=== PATIENT | male | born 1950 ===

== ENCOUNTER 2016-10-15 03:46 | Inpatient (IN) | payer OTHER ==
[~2016-10-15] VITALS: Ht 167.6 cm; Wt 69.4 kg
[2016-10-15 07:43] LABS: PLATELET COUNT 172 x10^3mcL (130-400)
[2016-10-15 07:44] LABS: RED CELL DISTRIBUTION WIDTH 14.8 % (11.5-14.5)
[2016-10-15 07:49] LABS: CHLORIDE SERUM 103 mmol/L (98-107); CREATININE SERUM 1.1 mg/dL (0.7-1.3); GFR1 > 60 mL/min; GLUCOSE SERUM 247 mg/dL (74-106); POTASSIUM SERUM 4.1 mmol/L (3.5-5.1); SODIUM SERUM 138 mmol/L (136-145)
[2016-10-15 07:51] LABS: ALBUMIN 3.6 g/dL (3.4-5.0); ALKALINE PHOSPHATASE 196 U/L (46-116); ALT/SGPT 157 U/L (16-63); AST/SGOT 56 U/L (15-37); BILIRUBIN TOTAL 1.49 mg/dL (0.20-1.00); TOTAL PROTEIN, SERUM 7.2 g/dL (6.4-8.2)
[2016-10-15 08:13] LABS: BAND NEUTROPHIL 6 % (0-10); METAMYELOCTE 3 % (0-2); MONOCYTE 2 % (0-7); SEGMENTED NEUTROPHILS 84 % (37-75)
[2016-10-15 08:15] LABS: PLATELET MORPHOLOGY LARGE PLATELET SEEN; rbc morphology (normal/abnorm) NORMAL (NORMAL)
[2016-10-15] MEDS ORDERED: ATORVASTATIN CA40 M1 PO (09:56)
[2016-10-15] MEDS ORDERED: LEVOTHYROXIN0.075 M2 PO (09:56)
[2016-10-15] MEDS ORDERED: JARDIANCE25 MG PO (09:57)
[2016-10-15] MEDS ORDERED: TRAZODONE50 M1 PO (09:57)
[2016-10-15] MEDS ORDERED: XARELTO10 M1 PO (09:57)
[2016-10-15] MEDS ORDERED: METOPROLOL SUCC50 M2 PO (09:57)
[2016-10-15] MEDS ORDERED: LOSARTAN POTASS25 M1 PO (09:57)
[2016-10-15] MEDS ORDERED: METFORMIN HCL1000 MG PO (09:58)
[2016-10-15] MEDS ORDERED: GLYBURIDE5 MG PO (09:59)
[2016-10-15] MEDS ORDERED: DEPO-TESTOS200 MG/ML IM (09:59)
[2016-10-15] MEDS ORDERED: XYZAL5 M1 PO (10:00)
[2016-10-15] MEDS ORDERED: METOPROLOL TAR100 MG PO (10:01)
[2016-10-15 11:43] VITALS: BP 107/61
[2016-10-15 11:52] LABS: FREE T4 1.38 ng/dL (0.76-1.46); FREE THYROXINE INDEX 3.9 ug/dL (1.4-4.5); T4(THYROXINE) 9.9 ug/dL (4.7-13.3)
[2016-10-15 11:53] LABS: T3 TOTAL 0.97 ng/mL
[2016-10-15 13:44] VITALS: BP 111/58
[2016-10-15 17:28] VITALS: BP 114/69
[2016-10-15 21:54] VITALS: BP 99/64
[2016-10-16 06:02] VITALS: BP 115/71
[2016-10-16 06:47] LABS: BASOPHIL % 0.3 % (0-2); PLATELET COUNT 148 x10^3mcL (130-400)
[2016-10-16 06:55] LABS: RED CELL DISTRIBUTION WIDTH 14.8 % (11.5-14.5)
[2016-10-16 06:59] LABS: ALKALINE PHOSPHATASE 137 U/L (46-116); ALT/SGPT 140 U/L (16-63); AST/SGOT 46 U/L (15-37); BILIRUBIN TOTAL 1.23 mg/dL (0.20-1.00); CALCIUM 8.1 mg/dL (8.5-10.1); CARBON DIOXIDE 22.2 mmol/L (21-32); CHLORIDE SERUM 109 mmol/L (98-107); CREATININE SERUM 1.1 mg/dL (0.7-1.3); GFR1 > 60 mL/min; GLUCOSE SERUM 154 mg/dL (74-106); MAGNESIUM 1.2 mg/dL (1.8-2.4); PHOSPHOROUS 3.9 mg/dL (2.5-4.9); POTASSIUM SERUM 3.9 mmol/L (3.5-5.1); SODIUM SERUM 142 mmol/L (136-145)
[2016-10-16 07:02] LABS: ALBUMIN 2.9 g/dL (3.4-5.0)
[2016-10-16 07:22] LABS: CHOLESTEROL/HDL RATIO 1.9
[2016-10-16 10:26] VITALS: BP 107/77
[2016-10-16 14:20] VITALS: BP 101/65
[2016-10-16 16:52] LABS: UA SPECIFIC GRAVITY >=1.030 (1.005-1.035); microscopic required? YES; urine erythrocyte NEGATIVE (NEGATIVE)
[2016-10-16 17:58] VITALS: BP 100/80
[2016-10-16 21:45] VITALS: BP 125/81
[2016-10-17 05:46] VITALS: BP 113/88
[2016-10-17 06:03] LABS: BASOPHIL % 0.3 % (0-2); PLATELET COUNT 161 x10^3mcL (130-400)
[2016-10-17 06:28] LABS: CALCIUM 8.4 mg/dL (8.5-10.1); CARBON DIOXIDE 24.3 mmol/L (21-32); CHLORIDE SERUM 106 mmol/L (98-107); CREATININE SERUM 1.2 mg/dL (0.7-1.3); GFR1 > 60 mL/min; GLUCOSE SERUM 129 mg/dL (74-106); MAGNESIUM 1.2 mg/dL (1.8-2.4); PHOSPHOROUS 4.1 mg/dL (2.5-4.9); POTASSIUM SERUM 4.3 mmol/L (3.5-5.1); SODIUM SERUM 141 mmol/L (136-145)
[2016-10-17 06:41] LABS: RED CELL DISTRIBUTION WIDTH 15.1 % (11.5-14.5)
[2016-10-17 08:56] VITALS: BP 125/68
[2016-10-17] MEDS ORDERED: LIPITOR80 MG PO (08:56)
[2016-10-17] MEDS ORDERED: ECO81 PO (08:59)
[2016-10-17] MEDS ORDERED: CAR60 PO (08:59)
[2016-10-17] MEDS ORDERED: ZES5 PO (09:00)
[2016-10-17] MEDS ORDERED: LEVOFLOXACIN500 M1 PO (09:01)
[2016-10-17] MEDS ORDERED: LAC PO (09:01)
[2016-10-17] MEDS ORDERED: CLEOCIN HCL300 MG PO (09:02)
[2016-10-17 13:05] VITALS: BP 125/68
[2016-10-17 13:09] VITALS: BP 121/83
== END 2016-10-17 13:34 | disposition home or self-care (01) | DRG 177 ==
LOC: ED 03:46 → DU 07:40
PROVIDERS: Emergency Medicine; ADMIT Family Medicine
DX: J69.0 Pneumonitis due to inhalation of food and vomit (principal); J96.21 Acute and chronic respiratory failure with hypoxia; N17.0 Acute kidney failure with tubular necrosis; I50.43 Acute on chronic combined systolic (congestive) and diastolic (congestive) heart failure; D68.69 Other thrombophilia; I69.354 Hemiplegia and hemiparesis following cerebral infarction affecting left non-dominant side; I69.320 Aphasia following cerebral infarction; I11.0 Hypertensive heart disease with heart failure; E11.65 Type 2 diabetes mellitus with hyperglycemia; E11.51 Type 2 diabetes mellitus with diabetic peripheral angiopathy without gangrene; J44.9 Chronic obstructive pulmonary disease, unspecified; I48.2 Chronic atrial fibrillation; I35.0 Nonrheumatic aortic (valve) stenosis; I27.2 Other secondary pulmonary hypertension; N28.89 Other specified disorders of kidney and ureter; K70.0 Alcoholic fatty liver; E03.9 Hypothyroidism, unspecified; E78.5 Hyperlipidemia, unspecified; F10.10 Alcohol abuse, uncomplicated; Z68.24 Body mass index [BMI] 24.0-24.9, adult; Z87.891 Personal history of nicotine dependence; Z79.01 Long term (current) use of anticoagulants; Z79.84 Long term (current) use of oral hypoglycemic drugs
CPT/HCPCS: 36600; 82962; 83880; 84439; 92610-GN; 94150; 97116-GP; J0456; J0696; J1940; J1956; J3475; J3490; J7030; J7050; J7512; J7613; J7644; Q0092

== ENCOUNTER 2017-02-16 11:22 | Emergency (ER) | payer OTHER, BC ==
[~2017-02-16 11:22] MED LIST: ATORVASTATIN CA40 M1 PO; CAR60 PO; CLEOCIN HCL300 MG PO; DEPO-TESTOS200 MG/ML IM; ECO81 PO; GLYBURIDE5 MG PO; JARDIANCE25 MG PO; LAC PO; LEVOFLOXACIN500 M1 PO; LEVOTHYROXIN0.075 M2 PO; LIPITOR80 MG PO; LOSARTAN POTASS25 M1 PO; METFORMIN HCL1000 MG PO; METOPROLOL SUCC50 M2 PO; METOPROLOL TAR100 MG PO; TRAZODONE50 M1 PO; XARELTO10 M1 PO; XYZAL5 M1 PO; ZES5 PO
[2017-02-16 12:00] LABS: BASOPHIL % 0.6 % (0-2); RED CELL DISTRIBUTION WIDTH 13.7 % (11.5-14.5)
[2017-02-16] MEDS ORDERED: DILTIAZEM HCL180 MG PO (12:00)
[2017-02-16] MEDS ORDERED: TOPROL XL25 MG PO (12:00)
[2017-02-16] MEDS ORDERED: LIPITOR40 MG PO (12:01)
[2017-02-16] MEDS ORDERED: JARDIANCE25 MG PO (12:01)
[2017-02-16 12:05] LABS: CALCIUM 8.9 mg/dL (8.5-10.1); CARBON DIOXIDE 24.5 mmol/L (21-32); CHLORIDE SERUM 105 mmol/L (98-107); GFR1 > 60 mL/min; GLUCOSE SERUM 233 mg/dL (74-106); POTASSIUM SERUM 4.4 mmol/L (3.5-5.1); SODIUM SERUM 140 mmol/L (136-145)
[2017-02-16 12:11] LABS: ALBUMIN 3.8 g/dL (3.4-5.0); ALKALINE PHOSPHATASE 179 U/L (46-116); ALT/SGPT 241 U/L (16-63); AST/SGOT 130 U/L (15-37); BILIRUBIN TOTAL 0.95 mg/dL (0.20-1.00); TOTAL PROTEIN, SERUM 7.6 g/dL (6.4-8.2)
[2017-02-16 12:21] LABS: PLATELET COUNT 260 x10^3mcL (130-400)
[2017-02-16 13:50] VITALS: BP 122/78
== END 2017-02-16 14:10 | disposition home or self-care (01) ==
LOC: ED 11:22
PROVIDERS: Emergency Medicine
DX: I11.0 Hypertensive heart disease with heart failure (principal); I50.42 Chronic combined systolic (congestive) and diastolic (congestive) heart failure; I48.91 Unspecified atrial fibrillation; E11.9 Type 2 diabetes mellitus without complications
CPT/HCPCS: 83880; J1940; J3490; Q0092

== ENCOUNTER 2017-02-28 11:14 | Inpatient (IN) | payer OTHER, BC ==
[~2017-02-28] VITALS: Ht 170.2 cm; Wt 67.2 kg
[~2017-02-28 11:14] MED LIST changes: +DILTIAZEM HCL180 MG PO; +LIPITOR40 MG PO; +TOPROL XL25 MG PO
--- NOTE | 2017-02-28 11:19 | NUR ---
PT SENT TO LOBBY TO WAIT FOR AVAILABLE BED. NO DISTRESS NOTED AND ALERT AND ORIENTED.
--- NOTE | 2017-02-28 11:57 | NUR ---
DR. WESTFALL, AT BEDSIDE FOR MSE. SEE ED ASSESSMENT FOR NOTES. COMFORT MESAURES IMPLEMENTED. CALL LIGHT W/IN REACH. WILL CONTINUE TO MONITOR.
--- NOTE | 2017-02-28 13:33 | NUR ---
DR WILL AT BEDSIDE TO DISCUSS PLAN OF CARE PTS HR IS AFIB AROUND 120-145 WHERE BEFORE IT WAS AROUND 80/90, RECOMNED TO DR TURK AN EKG, EMT AT BEDSIDE FOR EKG
--- NOTE | 2017-02-28 14:57 | NUR ---
MEDICATED ORDERED. PLEASE SEE EMR.
--- NOTE | 2017-02-28 15:25 | NUR ---
DR. WESTFALL AT BEDSIDE FOR PLAN OF CARE. RECOMMENDED PT BE ADMITTED TO HOSPITAL. PT REFUSING. WAITING FOR TO ARRIVE TO DISCUSS PLAN OF CARE.
[2017-02-28 16:47] LABS: BASOPHIL % 0.8 % (0-2); PLATELET COUNT 287 x10^3mcL (130-400); RED CELL DISTRIBUTION WIDTH 13.7 % (11.5-14.5)
[2017-02-28 17:00] LABS: CALCIUM 9.5 mg/dL (8.5-10.1); CARBON DIOXIDE 27.5 mmol/L (21-32); CHLORIDE SERUM 103 mmol/L (98-107); CREATININE SERUM 1.2 mg/dL (0.7-1.3); GFR1 > 60 mL/min; GLUCOSE SERUM 198 mg/dL (74-106); POTASSIUM SERUM 4.6 mmol/L (3.5-5.1); SODIUM SERUM 140 mmol/L (136-145)
[2017-02-28] MEDS ORDERED: XARELTO20 M1 PO (17:01)
[2017-02-28] MEDS ORDERED: METOPROLOL TART25 M1 PO ×2 (17:02)
[2017-02-28] MEDS ORDERED: METFORMIN HCL1000 MG PO (17:02)
[2017-02-28] MEDS ORDERED: MEN'S ONE DAIL1 EACH PO (17:04)
--- NOTE | 2017-02-28 17:04 | NUR ---
MED REC COMPLETED USING LIST PROVIDED BY .
[2017-02-28 17:05] LABS: ALBUMIN 3.8 g/dL (3.4-5.0); ALKALINE PHOSPHATASE 118 U/L (46-116); ALT/SGPT 101 U/L (16-63); AST/SGOT 63 U/L (15-37); BILIRUBIN TOTAL 0.91 mg/dL (0.20-1.00); TOTAL PROTEIN, SERUM 8.1 g/dL (6.4-8.2)
--- NOTE | 2017-02-28 17:08 | NUR ---
BILAT NARES SWABBED FOR MRSA SCREENING.
--- NOTE | 2017-02-28 18:00 | NUR ---
HR UP TO 160'S, MED PER ORDER. FLUID BOLUS BEGAN FOR ELEVATED LACTIC ACID.
--- NOTE | 2017-02-28 18:14 | NUR ---
REPORT GIVEN TO GORGE SAVAGE FOR CONTINUATION OF CARE PRIMARY RN.
--- NOTE | 2017-02-28 18:15 | NUR ---
PURPLE SEPSIS CHECKLIST INITIATED. PT MEETS SEVERE SEPSIS GUIDELINES. DR. WESTFALL NOTIFIED.
--- NOTE | 2017-02-28 18:22 | NUR ---
PT TRANSFERED VIA GURNEY ACCOMPANIED BY NURSE AND EMT. SENIOR COMPUTER SPECIALIST ATTACHED. VSS. RESPS E/U. NO S/S OF DISTRESS NOTED.
[2017-02-28 18:25] LABS: microscopic required? NO
--- NOTE | 2017-02-28 18:25 | NUR ---
FLUID END TIME CHARTING & REPEAT VITALS ENDORSED TO HUSSEIN PENNINGTON.
[2017-02-28 18:31] LABS: ALBUMIN 3.8 g/dL (3.4-5.0); MAGNESIUM 1.7 mg/dL (1.8-2.4); PHOSPHOROUS 4.7 mg/dL (2.5-4.9)
[2017-02-28 18:37] LABS: UA SPECIFIC GRAVITY 1.015 (1.005-1.035); urine erythrocyte NEGATIVE (NEGATIVE)
[2017-02-28 18:41] VITALS: BP 127/80
[2017-02-28 18:43] LABS: T3 TOTAL 1.02 ng/mL
--- NOTE | 2017-02-28 18:49 | NUR ---
RECEIVED PATIENT FROM ED VIA GUERNEY, PATIENT ALERT AND ORIENTED, TELE # 31 AFIB WITH RVR, HR IRREGULAR 120'S TO 160'S, PHYSICIAN MADE AWARE, NO C/O PAIN AT THIS TIME, IV ACCESS TO LFA WNL, ORIENTED PATIENT TO ROOM AND SURROUNDINGS, BED IN LOW POSITION, BED RAILS UP X 2, CALL LIGHT WITHIN REACH, WILL ENDORSE CARE TO ONCOMING NURSE
[2017-02-28 19:01] LABS: FREE T4 1.25 ng/dL (0.76-1.46); FREE THYROXINE INDEX 3.8 ug/dL (1.4-4.5); T4(THYROXINE) 10.5 ug/dL (4.7-13.3)
--- NOTE | 2017-02-28 19:40 | NUR ---
REC'D PT FROM HUSSEIN PENNINGTON. SON AT BEDSIDE. PT AAOX4, SPEECH CLEAR, FOLLOWS COMMANDS. NO SIGNS OF DISTRESS NOTED. BREATHING EVEN/UNLABORED ON RA. ON TELE 31 READING AFIB. DENIES CP, DIZZINESS, OR PALPITATIONS. NO EDEMA NOTED. DENIES ABD PAIN, TENDERNESS, OR N/V. NOTED REDNESS TO ABD. PICTURE OBTAINED. VOIDING FREELY. AMBULATORY. DENIES PAIN OR DISCOMFORT AT THIS TIME. 1L NS BOLUS COMPLETED. BP 117/96, MAP 101, HR 156. NS @ 100 ML/HR INFUSING TO LFA, SITE WNL. CARDIZEM 10 MG IVP GIVEN PER ORDER. PT ORIENTED TO DEVICES AND SURROUNDINGS. CALL LIGHT WITHIN REACH, BED AT LOWEST POSITION. WILL CONTINUE TO MONITOR.
[2017-02-28 19:43] VITALS: BP 117/96
[2017-02-28 21:13] VITALS: BP 110/72
--- NOTE | 2017-02-28 21:33 | NUR ---
TELE CHANGED TO #33. PT STILL IN AFIB. HR 145. DR. MENDEZ AWARE. NO COMPLAINTS FROM THE PT AT THIS TIME. LAYING IN BED WATCHING TV. WILL CONTINUE TO MONITOR.
--- NOTE | 2017-02-28 21:58 | NUR ---
DR. MENDEZ MADE AWARE OF BNP 606. ASKED IF SHE WOULD LIKE TO LOWER IVF. NO CHANGES IN ORDERS AT THIS TIME.
--- NOTE | 2017-02-28 23:44 | NUR ---
LOPRESSOR 12.5 MG PO GIVEN PER ORDER. PT STILL IN AFIB. HR FLUCTUATING FROM 120'S UP TO 170'S WHILE PT IS UP TO URINATE. NO COMPLAINTS AT THIS TIME. PT RESTING IN BED. CALL LIGHT WITHIN REACH, BED AT LOWEST POSITION. WILL CONTINUE TO MONITOR.
--- NOTE | 2017-03-01 02:09 | NUR ---
PT RESTING IN BED WITH EYES CLOSED. STILL IN AFIB. HR 136. RESIDENT AWARE. NO SIGNS OF DISTRESS NOTED. BREATHING EVEN/UNLABORED ON RA. WILL CONTINUE TO MONITOR.
[2017-03-01 04:46] VITALS: BP 112/87
--- NOTE | 2017-03-01 04:52 | NUR ---
PT RESTING IN BED. UP TO VOID. NO COMPLAINTS. PT DENIES CP OR PALPITATIONS. STILL IN AFIB. HR 112. NO SIGNIFICANT CHANGES DURING SHIFT. HR FLUCTUATING. NEXT CARDIZEM DUE 0900. NO SIGNIFICANT CHANGES DURING SHIFT. CALL LIGHT WITHIN REACH, BED AT LOWEST POSITION. WILL ENDORSE TO DAY NURSE.
[2017-03-01 07:19] LABS: CALCIUM 8.6 mg/dL (8.5-10.1); CARBON DIOXIDE 24.1 mmol/L (21-32); CHLORIDE SERUM 105 mmol/L (98-107); CREATININE SERUM 0.9 mg/dL (0.7-1.3); GFR1 > 60 mL/min; GLUCOSE SERUM 141 mg/dL (74-106); MAGNESIUM 1.5 mg/dL (1.8-2.4); POTASSIUM SERUM 4.6 mmol/L (3.5-5.1); SODIUM SERUM 140 mmol/L (136-145)
--- NOTE | 2017-03-01 07:21 | NUR ---
HAND OFF REPORT GIVEN BY NOC NURSE. PATIENT IS RESTING IN BED, ALERT AND CALM. LUNG SOUNDS ARE CLEAR, CHEST RISE IS EVEN AND UNLABORED. PATIENT IS TELLE 33. PATIENT DENIES SOB, PAIN, NAUSEA AT THIS TIME. PATIENT HAS NS INFUSING AT 20 ML TO LEFT FOREARM. CALL LIGHT IS WITHIN REACH, BED IS LOCKED AND IN LOW POSTION AND SIDE RAILS ARE UP.
[2017-03-01 07:27] LABS: BASOPHIL % 0.8 % (0-2); PLATELET COUNT 281 x10^3mcL (130-400); RED CELL DISTRIBUTION WIDTH 13.1 % (11.5-14.5)
[2017-03-01 07:57] VITALS: BP 141/86
--- NOTE | 2017-03-01 08:16 | NUR ---
HEART RATE HAS BEEN 170-180'S THIS AM. STATED HE WANTS TO LEAVE AMA. HE IS UPSET NOTHING HAS BEEN DONE. HAD ABLATION ON MONDAY AND THINKS THE PROBLEM SHOULD BE FIXED. EXPLAINED NEEDED TO BE SEEN AND TALK WITH DR WHO WILL BE MAKING ROUNDS SOON. AGREED TO STAY. TOOK AM MEDS WITHOUT DIFFICULTY. URINAL EMPTIED OF 200ML OF URINE.
--- NOTE | 2017-03-01 08:57 | NUR ---
DR DIANE IN TO SEE PATIENT, EXPLAINED TO PATIENT THAT NURSING SPECIALIST WOULD BE IN TO SEE HIM AROUND NOON.
--- NOTE | 2017-03-01 10:19 | NUR ---
PATIENT IS RESTING IN BED, DENIES PAIN AND SOB AT THIS TIME. ASSESSED ABDOMEN. NOTED RED AREA AROUND UMBILICAL. ASSESSED LAST PICTURES OF SITE TO COMPARE, SITE LOOKS LESS RED THAN 02/28 WITH MORE REDNESS NOTED AT THE BELLY BUTTON. OINTMENT APPLIED PER MD AND EDUCATED PATIENT ABOUT MEDICATION, PURPOSE AND HOW OFTEN IT WOULD BE APPLIED. CALL LIGHT WITHIN REACH, SIDE RAILS UP.
[2017-03-01 10:31] VITALS: BP 131/86
--- NOTE | 2017-03-01 13:10 | NUR ---
DR VILLALOBOS IN TO SEE PATIENT. PATIENT STATING HE WILL SIGN OUT AMA AFTER [address] KIRAN AWARE.
--- NOTE | 2017-03-01 13:50 | NUR ---
SPOKE WITH DR MUKHERJEE CONCERNING MG 1.5.
[2017-03-01 13:53] VITALS: BP 111/85
--- NOTE | 2017-03-01 14:56 | NUR ---
DR MUKHERJEE IN ROOM TO EXPLAIN RISKS, INCLUDING STROKE TX, OF LEAVING AMA. DR REVIEWED MEDICATIONS WITH PATIENT AND ASSESSED RASH ON ABDOMEN. PATIENT REPORTS HAS ENOUGH OF THE MEDICATIONS AT HOME. DR MUKHERJEE MADE PATIENT AWARE ABX AND XARELTO WOULD BE SENT OVER TO [facility] IN [place] (PATIENTS [facility]ARM[facility]Y).
--- NOTE | 2017-03-01 14:56 | NUR ---
PATIENT SPOKE WITH PATIENT LEAVING AMA, PATIENT MADE AWARE OF RISKS FOR LEAVING AGAINST MEDICAL ADVICE. IV CATHETER REMOVED AND INTACT. TO TRANSPORT PATIENT. PATIENT WILL LEAVE WITH [facility] OINTMENT AND WILL TELECOMMUNICATIONS MANAGER OTHER MEDICATIONS FROM PHARMACY.
[2017-03-01] MEDS ORDERED: XARELTO20 M1 PO (15:18)
[2017-03-01] MEDS ORDERED: MYCOO TOP (15:20)
[2017-03-01] MEDS ORDERED: KEF500 PO (15:22)
--- NOTE | 2017-03-01 15:23 | NUR ---
AMBULATED AROUND ENTIRE FLOOR WITH WALKER AND O2 AT 2L VIA NC. MEDICAL STUDENTS WITH PATIENT. CURRENTLY SITTING BEDSIDE WAITING TO SEE IF WANTS TO GET TO BATHROOM TO HAVE BM.
--- NOTE | 2017-03-01 16:02 | NUR ---
WATCHING TV, AWAITING WIFES ARRIVAL TO TAKE HIM HOME.
--- NOTE | 2017-03-01 16:44 | NUR ---
HERE TO TIRE FINISHER PATIENT. OFF FLOOR VIA WHEELCHAIR WITH WATER PLUMBER. ALL BELONGINGS WITH PATIENT.
== END 2017-03-01 16:48 | disposition left against medical advice (07) | DRG 872 ==
LOC: ED 11:14 → DU 16:56
PROVIDERS: Emergency Medicine; ADMIT Family Medicine
DX: A41.9 Sepsis, unspecified organism (principal); L03.316 Cellulitis of umbilicus; D68.69 Other thrombophilia; L03.311 Cellulitis of abdominal wall; E11.65 Type 2 diabetes mellitus with hyperglycemia; E11.51 Type 2 diabetes mellitus with diabetic peripheral angiopathy without gangrene; E83.42 Hypomagnesemia; I48.2 Chronic atrial fibrillation; R74.0 Nonspecific elevation of levels of transaminase and lactic acid dehydrogenase [LDH]; E03.9 Hypothyroidism, unspecified; E78.5 Hyperlipidemia, unspecified; Z87.891 Personal history of nicotine dependence; Z79.01 Long term (current) use of anticoagulants; Z79.84 Long term (current) use of oral hypoglycemic drugs
CPT/HCPCS: 83880; 84439; J0696; J3490; J7030; Q0092

== ENCOUNTER 2017-07-31 13:01 | Inpatient (IN) | payer OTHER, BC ==
[~2017-07-31] VITALS: Ht 170.2 cm; Wt 70.8 kg
[~2017-07-31 13:01] MED LIST changes: +KEF500 PO; +MEN'S ONE DAIL1 EACH PO; +METOPROLOL TART25 M1 PO; +MYCOO TOP; +XARELTO20 M1 PO
[2017-07-31 13:09] VITALS: Ht 170.2 cm; Wt 70.8 kg
[2017-07-31 14:34] LABS: BASOPHIL % 0.6 % (0-2); PLATELET COUNT 265 x10^3mcL (130-400); RED CELL DISTRIBUTION WIDTH 13.8 % (11.5-14.5)
[2017-07-31 14:53] LABS: CALCIUM 9.2 mg/dL (8.5-10.1); CARBON DIOXIDE 22.4 mmol/L (21-32); CREATININE SERUM 1.8 mg/dL (0.7-1.3); POTASSIUM SERUM 4.9 mmol/L (3.5-5.1)
[2017-07-31 14:57] LABS: ALBUMIN 3.4 g/dL (3.4-5.0); BILIRUBIN TOTAL 0.44 mg/dL (0.20-1.00); PHOSPHOROUS 4.2 mg/dL (2.5-4.9); TOTAL PROTEIN, SERUM 7.5 g/dL (6.4-8.2); URIC ACID 5.9 mg/dL (3.5-7.2)
[2017-07-31 16:17] VITALS: BP 105/50
[2017-07-31 16:39] LABS: T3 TOTAL 0.5 ng/mL
[2017-07-31 16:48] VITALS: BP 109/54
[2017-07-31 16:55] VITALS: BP 109/54
[2017-07-31 16:58] LABS: CHOLESTEROL/HDL RATIO 2.5; MAGNESIUM 1.5 mg/dL (1.8-2.4)
[2017-07-31 17:30] VITALS: BP 109/54
[2017-07-31 17:47] LABS: FREE T4 2.16 ng/dL (0.76-1.46)
[2017-07-31 17:51] LABS: FREE THYROXINE INDEX 5.8 ug/dL (1.4-4.5); T4(THYROXINE) 14.5 ug/dL (4.7-13.3)
[2017-07-31 20:56] LABS: microscopic required? NO
[2017-07-31 21:06] LABS: UA SPECIFIC GRAVITY 1.025 (1.005-1.035); urine erythrocyte NEGATIVE (NEGATIVE)
[2017-07-31 21:24] LABS: AMPHETAMINE QUAL UR NONE DETECTED (NEG <=1000)
[2017-07-31 21:30] VITALS: BP 109/53
[2017-08-01 06:15] LABS: BASOPHIL % 0.3 % (0-2); PLATELET COUNT 245 x10^3mcL (130-400); RED CELL DISTRIBUTION WIDTH 13.4 % (11.5-14.5)
[2017-08-01 06:28] VITALS: BP 115/59
[2017-08-01 06:37] LABS: CALCIUM 8.3 mg/dL (8.5-10.1); CARBON DIOXIDE 21.9 mmol/L (21-32); CREATININE SERUM 1.3 mg/dL (0.7-1.3); POTASSIUM SERUM 5.5 mmol/L (3.5-5.1)
[2017-08-01 09:39] VITALS: BP 109/59
[2017-08-01 12:31] VITALS: BP 121/73
[2017-08-01 17:06] VITALS: BP 112/57
[2017-08-01 19:38] LABS: CALCIUM 7.9 mg/dL (8.5-10.1); CARBON DIOXIDE 23.1 mmol/L (21-32); CHLORIDE SERUM 107 mmol/L (98-107); CREATININE SERUM 1.1 mg/dL (0.7-1.3); GFR1 > 60 mL/min; GLUCOSE SERUM 99 mg/dL (74-106); POTASSIUM SERUM 4.2 mmol/L (3.5-5.1); SODIUM SERUM 143 mmol/L (136-145)
[2017-08-01 21:34] VITALS: BP 132/60
[2017-08-02 04:53] VITALS: BP 137/76
[2017-08-02 08:13] LABS: CALCIUM 7.9 mg/dL (8.5-10.1); CARBON DIOXIDE 24.6 mmol/L (21-32); CHLORIDE SERUM 105 mmol/L (98-107); GFR1 > 60 mL/min; GLUCOSE SERUM 123 mg/dL (74-106); PHOSPHOROUS 2.8 mg/dL (2.5-4.9); POTASSIUM SERUM 5.2 mmol/L (3.5-5.1); SODIUM SERUM 140 mmol/L (136-145)
[2017-08-02 08:27] LABS: BASOPHIL % 0.3 % (0-2); PLATELET COUNT 252 x10^3mcL (130-400); RED CELL DISTRIBUTION WIDTH 13.9 % (11.5-14.5)
[2017-08-02 09:32] VITALS: BP 120/66
[2017-08-02 13:55] VITALS: BP 146/68
[2017-08-02 16:25] LABS: CALCIUM 7.5 mg/dL (8.5-10.1); CARBON DIOXIDE 24.5 mmol/L (21-32); CHLORIDE SERUM 103 mmol/L (98-107); CREATININE SERUM 1.1 mg/dL (0.7-1.3); GFR1 > 60 mL/min; GLUCOSE SERUM 135 mg/dL (74-106); SODIUM SERUM 140 mmol/L (136-145)
[2017-08-02 17:00] VITALS: BP 116/63
[2017-08-02 20:55] LABS: CALCIUM 7.6 mg/dL (8.5-10.1); CARBON DIOXIDE 24.8 mmol/L (21-32); CHLORIDE SERUM 103 mmol/L (98-107); GFR1 > 60 mL/min; GLUCOSE SERUM 107 mg/dL (74-106); POTASSIUM SERUM 3.6 mmol/L (3.5-5.1); SODIUM SERUM 141 mmol/L (136-145)
[2017-08-02 21:11] VITALS: BP 135/81
[2017-08-09] MEDS ORDERED: LEVAQUIN750 MG PO (09:17)
[2017-08-09] MEDS ORDERED: CLEOCIN HCL300 MG PO (09:18)
[2017-08-09] MEDS ORDERED: ZOFRAN8 MG PO (09:18)
[2017-08-09] MEDS ORDERED: LAC PO (09:19)
== END 2017-08-02 21:21 | disposition home or self-care (01) | DRG 177 ==
LOC: ED 13:01 → DU 15:14
PROVIDERS: Emergency Medicine; Family Medicine
DX: J69.0 Pneumonitis due to inhalation of food and vomit (principal); N17.0 Acute kidney failure with tubular necrosis; J96.01 Acute respiratory failure with hypoxia; I48.91 Unspecified atrial fibrillation; Z86.73 Personal history of transient ischemic attack (TIA), and cerebral infarction without residual deficits; K21.9 Gastro-esophageal reflux disease without esophagitis; I10 Essential (primary) hypertension; E11.51 Type 2 diabetes mellitus with diabetic peripheral angiopathy without gangrene; Z90.49 Acquired absence of other specified parts of digestive tract; Z87.891 Personal history of nicotine dependence; N28.89 Other specified disorders of kidney and ureter
CPT/HCPCS: 83880; 84439; 87804; 92610; 94150; 97110-GP; 97530-GP; J1956; J2405; J3475; J3490; J7030; J7620; Q0092

== ENCOUNTER 2018-07-13 08:53 | Inpatient (IN) | payer OTHER, BC ==
[~2018-07-13] VITALS: Ht 167.6 cm; Wt 70.9 kg
[~2018-07-13 08:53] MED LIST changes: +LEVAQUIN750 MG PO; +ZOFRAN8 MG PO
[2018-07-13 09:17] VITALS: Ht 167.6 cm; Wt 70.9 kg
[2018-07-13 10:07] LABS: BASOPHIL % 0.6 % (0-2); PLATELET COUNT 210 x10^3mcL (130-400)
[2018-07-13 10:28] LABS: BILIRUBIN TOTAL 0.6 mg/dL (0.20-1.00); CALCIUM 8.4 mg/dL (8.5-10.1); CARBON DIOXIDE 24.7 mmol/L (21-32); CREATININE SERUM 1.4 mg/dL (0.7-1.3); POTASSIUM SERUM 5.5 mmol/L (3.5-5.1); TOTAL PROTEIN, SERUM 6.9 g/dL (6.4-8.2)
[2018-07-13 10:30] LABS: ALBUMIN 3.2 g/dL (3.4-5.0); CHOLESTEROL/HDL RATIO 2.3
[2018-07-13 10:33] LABS: FREE T4 1.75 ng/dL (0.76-1.46); FREE THYROXINE INDEX 5.5 ug/dL (1.4-4.5); T4(THYROXINE) 14.4 ug/dL (4.7-13.3)
[2018-07-13 11:07] LABS: T3 TOTAL 0.86 ng/mL
[2018-07-13] MEDS ORDERED: XARELTO10 M1 PO (12:07)
[2018-07-13] MEDS ORDERED: TAMSULOSIN HYD0.4 M1 PO (12:08)
[2018-07-13] MEDS ORDERED: AMIODARONE HCL200 MG PO (12:08)
[2018-07-13 15:23] VITALS: BP 124/61
[2018-07-13 15:50] VITALS: BP 89/41
[2018-07-13 16:57] VITALS: BP 138/64
[2018-07-13 20:53] VITALS: BP 138/62
[2018-07-14 05:17] VITALS: BP 144/70
[2018-07-14 06:23] LABS: CALCIUM 8.8 mg/dL (8.5-10.1); CHLORIDE SERUM 107 mmol/L (98-107); CREATININE SERUM 1.1 mg/dL (0.7-1.3); GFR1 > 60 mL/min; GLUCOSE SERUM 118 mg/dL (74-106); MAGNESIUM 1.3 mg/dL (1.8-2.4); POTASSIUM SERUM 4.6 mmol/L (3.5-5.1); SODIUM SERUM 144 mmol/L (136-145)
[2018-07-14 06:59] LABS: BASOPHIL % 0.5 % (0-2); PLATELET COUNT 193 x10^3mcL (130-400); RED CELL DISTRIBUTION WIDTH 14.3 % (11.5-14.5)
[2018-07-14 08:49] VITALS: BP 132/71
[2018-07-14 11:31] LABS: microscopic required? NO
[2018-07-14 11:44] LABS: UA SPECIFIC GRAVITY >=1.030 (1.005-1.035); urine erythrocyte NEGATIVE (NEGATIVE)
[2018-07-14 12:57] VITALS: BP 145/69
[2018-07-14 16:56] VITALS: BP 148/67
[2018-07-14 20:44] VITALS: BP 162/77
[2018-07-14 21:33] VITALS: BP 148/67
[2018-07-15 05:25] VITALS: BP 138/67
[2018-07-15 06:14] LABS: BASOPHIL % 0.6 % (0-2); PLATELET COUNT 199 x10^3mcL (130-400); RED CELL DISTRIBUTION WIDTH 14.3 % (11.5-14.5)
[2018-07-15 06:20] LABS: CARBON DIOXIDE 26.1 mmol/L (21-32); CHLORIDE SERUM 107 mmol/L (98-107); GFR1 > 60 mL/min; GLUCOSE SERUM 94 mg/dL (74-106); MAGNESIUM 1.5 mg/dL (1.8-2.4); POTASSIUM SERUM 4.6 mmol/L (3.5-5.1); SODIUM SERUM 142 mmol/L (136-145)
[2018-07-15] MEDS ORDERED: ZIT250 PO (08:08)
[2018-07-15] MEDS ORDERED: PREDNISONE20 MG PO (08:10)
[2018-07-15 08:20] VITALS: BP 148/62
[2018-07-15 08:39] VITALS: BP 148/62
== END 2018-07-15 10:57 | disposition home or self-care (01) | DRG 871 ==
LOC: ED 08:53 → DU 12:19
PROVIDERS: Specialist; ADMIT Internal Medicine
DX: A41.9 Sepsis, unspecified organism (principal); J18.9 Pneumonia, unspecified organism; N17.0 Acute kidney failure with tubular necrosis; E87.2 Acidosis; J20.9 Acute bronchitis, unspecified; R00.1 Bradycardia, unspecified; I11.9 Hypertensive heart disease without heart failure; I48.0 Paroxysmal atrial fibrillation; N40.0 Benign prostatic hyperplasia without lower urinary tract symptoms; E11.9 Type 2 diabetes mellitus without complications; E03.9 Hypothyroidism, unspecified; Z68.25 Body mass index [BMI] 25.0-25.9, adult; Z86.73 Personal history of transient ischemic attack (TIA), and cerebral infarction without residual deficits; Z79.84 Long term (current) use of oral hypoglycemic drugs; Z79.01 Long term (current) use of anticoagulants
CPT/HCPCS: 82962; 83880; 84439; C9113; J0456; J0696; J1815; J3370; J3475; J3490; J7030; Q0092